=== PATIENT | female | born 1970 | race Caucasian/White ===

== ENCOUNTER 2017-12-12 03:42 | Emergency (ER) | payer OTHER, SELFPAY ==
[2017-12-12 03:44] VITALS: BP 103/69; PULSE 63; RESP 16; TEMP 36.7; O2SAT 98; BMI 26.8
--- NOTE | 2017-12-12 04:01 | EKG12_ITS ---
Test Reason : DIZZINESS Blood Pressure : / mmHG Vent. Rate : 058 BPM Atrial Rate : 058 BPM P-R Int : 184 ms QRS Dur : 080 ms QT Int : 410 ms P-R-T Axes : 067 085 050 degrees QTc Int : 402 ms Sinus bradycardia Otherwise normal ECG Confirmed by PUMA PRETTY, CORBIN ([id number]), communications editor CHARLES PAINTER ([id number]) on 12/17/2017 1:54:34 PM Referred By: KIMANI Confirmed By:CORBIN BARTHOLOMEW MD
--- NOTE | 2017-12-12 04:02 | VDLE_ITS ---
Reason For Study: LEG PAIN RIGHT LEFT GSV is normal. CFV is compressible, spontaneous, phasic, CFV is compressible, spontaneous, phasic, competent, and demonstrates normal competent and demonstrates normal augmentation. augmentation. FV is compressible, spontaneous, phasic, competent and demonstrates normal augmentation. POP V is compressible, spontaneous, phasic, competent and demonstrates normal augmentation. T/P Trunk is compressible. PTV is compressible. RT PerV is compressible. Procedure Exam performed portable in ED. A preliminary report was called and/or faxed to Dr. Cardenas. Interpretation Summary Deep veins of the right lower extremity are patent and compressible segmentally. There is no evidence of right lower extremity deep vein thrombosis. Valvular competence appears intact within the proximal deep venous system on the right . The right greater saphenous vein appears patent and compressible segmentally. Ordering Physician: Erica Harper Referring Physician: Amish Gloden MD Performed By: Maria Del Carmen Lara RVT
--- NOTE | 2017-12-12 04:16 | ED.VISSUMM ---
- ER Visit Summary Date of Service: 12/12/17 Chief Complaint: Right leg cramping History of Present Illness: The patient is a 46 F presenting with right leg cramping. Patient states she woke up and started to walk to the bathroom. She had cramping in her right leg. She began to feel anxious because she has known multiple people who have from blood clots. She started to feel dizzy like she was going to pass out. She did not pass out. She denies vertigo. She had nausea and diarrhea, no vomiting. She denies chest pain or shortness of breath. She states she has similar symptoms when she has her blood drawn. She did have a recent plane trip to [place]. No other PE/DVT risk factors. Physical Examination: Vitals are stable. Patient is afebrile. Alert no acute distress. HEENT exam is unremarkable. Neck is supple. Lungs are clear and equal bilaterally. Heart is regular rate and rhythm. Abdomen is soft nontender nondistended. Extremities no calf tenderness; no erythema, warmth or swelling. Normal distal pulses Skin is warm and dry. No focal neurologic deficit. Remainder of exam is unremarkable. Emergency Department Course and Treatment: EKG is sinus rate of 58 with no acute ischemic changes. CBC, chemistries are unremarkable. On repeat evaluation she is resting comfortably. Venous Doppler of the right lower extremity is pending at this time and will be checked out to the oncoming physician. Disposition: Pending Impression: RLE cramping, dizziness-resolved This note was generated with [email or web address] dictation software. It may contain incorrect words, spelling, and punctuation that were not noted in review of the chart prior to signing ED Disposition - Plan for ED Patient: Chief Complaint: Lower Extremity Injury Instructions: ED Dizziness [facility] Referrals: Amish Golden MD [Primary Care Provider] -
--- NOTE | 2017-12-12 04:20 | ED.DCSUM_ITS ---
- ER Visit Summary Date of Service: 12/12/17 Chief Complaint: Right leg cramping History of Present Illness: The patient is a 46 F presenting with right leg cramping. Patient states she woke up and started to walk to the bathroom. She had cramping in her right leg. She began to feel anxious because she has known multiple people who have from blood clots. She started to feel dizzy like she was going to pass out. She did not pass out. She denies vertigo. She had nausea and diarrhea, no vomiting. She denies chest pain or shortness of breath. She states she has similar symptoms when she has her blood drawn. She did have a recent plane trip to [place]. No other PE/ DVT risk factors. Physical Examination: Vitals are stable. Patient is afebrile. Alert no acute distress. HEENT exam is unremarkable. Neck is supple. Lungs are clear and equal bilaterally. Heart is regular rate and rhythm. Abdomen is soft nontender nondistended. Extremities no calf tenderness; no erythema, warmth or swelling. Normal distal pulses Skin is warm and dry. No focal neurologic deficit. Remainder of exam is unremarkable. Emergency Department Course and Treatment: EKG is sinus rate of 58 with no acute ischemic changes. CBC, chemistries are unremarkable. On repeat evaluation she is resting comfortably. Venous Doppler of the right lower extremity is pending at this time and will be checked out to the oncoming physician. Disposition: Pending Impression: RLE cramping, dizziness-resolved This note was generated with [employer] dictation software. It may contain incorrect words, spelling, and punctuation that were not noted in review of the chart prior to signing ED Disposition - Plan for ED Patient: Chief Complaint: Lower Extremity Injury Instructions: ED Dizziness [facility] Referrals: Amish Golden MD [Primary Care Provider] -
[2017-12-12 04:57] LABS: Absolute Lymphocyte Count 2.46 X10^3/ul (0.83-4.51); Absolute Neutrophil Count 2.9 X10^3/uL (2.0-7.7); Basophil# 0.05 X10^3/uL; Basophil% 0.7 % (0-1); Hemoglobin 13.5 g/dl (12.0-15.0); Lymphocyte # 2.46 X10^3/ul (4.0); Lymphocyte % 36.9 % (19-41); Mean Corp Hgb Conc 32.1 g/gl (32-36); Mean Corpuscular Hgb 27.8 pg (27.0-32.0); Mean Corpuscular Volume 86.4 fL (81-99); Mean Platelet Vol. 9.9 fl (6.2-12.0); Monocyte% 13.5 % (0-10); Neutrophil # 2.85 X10^3/uL (2.7-7.7); Neutrophil % 42.8 % (47-70); Platelet Count 268 K/mm3 (150-450); RBC Distribution Width CV 13.3 % (11.6-14.6); RBC Distribution Width SD 41.6 fl (35.1-43.9); Red Blood Count 4.86 M/mm3 (4.2-5.4); White Blood Count 6.7 K/mm3 (4.4-11.0)
[2017-12-12 04:58] LABS: POSITIVE COUNT NO; POSITIVE DIFFERENTIAL NO; POSITIVE MORPHOLOGY NO
[2017-12-12] MEDS: 0.9% Normal Saline 1,000 ML 1000 ML IV (05:11)
[2017-12-12 05:15] LABS: Anion Gap 7 (5-15); BUN 18 mg/dL (7-18); BUN/Creat Ratio 19.8 RATIO (10-20); Calcium,Total 8.9 mg/dL (8.5-10.1); Chloride 105 mmol/L (98-107); Creatinine, Serum 0.91 mg/dL (0.55-1.02); EST Glomerular Filtration Rate 70 mL/min (>60); Est Glom Filt Rate - Afr Amer 85 mL/min (>60); Estimated Creatinine Clearance 68.77 ml/min; Glucose 98 mg/dL (74-106); Potassium 3.9 mmol/L (3.5-5.1); Sodium Level 142 mmol/L (136-145)
--- NOTE | 2017-12-12 05:24 | ED.DEP ---
ED Disposition - Plan for ED Patient: Chief Complaint: Lower Extremity Injury Instructions: ED Dizziness [facility] Referrals: Amish Golden MD [Primary Care Provider] -
[2017-12-12 08:31] VITALS: BP 113/65; PULSE 76; RESP 14; O2SAT 97
== END 2017-12-12 08:32 | disposition home or self-care (01) ==
LOC: ED 04:04
PROVIDERS: Emergency Provider Emergency Medicine; Family Provider Family Medicine; PCP Family Medicine
DX: R25.2 Cramp and spasm (principal); R42 Dizziness and giddiness; R19.7 Diarrhea, unspecified
CPT/HCPCS: 80048; 85025; 93005; 93971; 96360; 96361; 99284; J7030; A4216

== ENCOUNTER → 2018-05-13 08:00 | Outpatient (CLI) | payer OTHER, SELFPAY ==
--- NOTE | 2018-05-13 08:02 | US_ITS ---
STUDY: ULTRASOUND OF THE FEMALE PELVIS - COMPLETE REASON FOR EXAM: Female, 47 years old. Suprapubic pain. LMP: 04/20/2018 TECHNIQUE: Transabdominal and Transvaginal TECHNICAL QUALITY: Adequate. COMPARISON: None. FINDINGS: The uterus is anteverted and is in a midline position. The uterus measures 12.6 x 5.9 x 4.2 cm. Uterus is relatively heterogeneous which can be seen with diffuse leiomyomatous change. There are focal fibroids. There is a 2.3 cm anterior uterine fibroid. There is an 8 mm calcified fibroid of the fundus. There is a 1.8 cm posterior uterine fibroid. There is a Nabothian cyst of the cervix. The endometrium measures 10 mm in thickness, and is hypoechoic. There is significant endometrial fluid. There is a 1.1 cm soft tissue structure or mass in the endometrial cavity. The right ovary is visualized. The right ovary measures 2.9 x 2.3 x 1.3 cm. There is no right ovarian cyst or ovarian mass. There is no visualized right adnexal mass or complex lesion. There is normal arterial and normal venous vascularity. The left ovary is visualized. The left ovary measures 3.2 x 2.0 x 1.4 cm. There is no left ovarian cyst or ovarian mass. There is no visualized left adnexal mass or complex lesion. There is normal arterial and normal venous vascularity. There is no fluid in the cul-de-sac. The pre void volume of the bladder was 210 ml. US/Pelvic (Non ) IMPRESSION: Enlarged uterus with several focal fibroids and possible diffuse leiomyomatous change. Fluid filled endometrial cavity with a 1.1 cm soft tissue structure, possibly a polyp. Correlate with status. Consider direct visualization. Electronically Signed: Jaime Lagos MD at 19:20 EDT , Service support ,
--- NOTE | 2018-05-13 08:20 | US_ITS ---
STUDY: ULTRASOUND OF THE FEMALE PELVIS - COMPLETE REASON FOR EXAM: Female, 47 years old. Suprapubic pain. LMP: 04/20/2018 TECHNIQUE: Transabdominal and Transvaginal TECHNICAL QUALITY: Adequate. COMPARISON: None. FINDINGS: The uterus is anteverted and is in a midline position. The uterus measures 12.6 x 5.9 x 4.2 cm. Uterus is relatively heterogeneous which can be seen with diffuse leiomyomatous change. There are focal fibroids. There is a 2.3 cm anterior uterine fibroid. There is an 8 mm calcified fibroid of the fundus. There is a 1.8 cm posterior uterine fibroid. There is a Nabothian cyst of the cervix. The endometrium measures 10 mm in thickness, and is hypoechoic. There is significant endometrial fluid. There is a 1.1 cm soft tissue structure or mass in the endometrial cavity. The right ovary is visualized. The right ovary measures 2.9 x 2.3 x 1.3 cm. There is no right ovarian cyst or ovarian mass. There is no visualized right adnexal mass or complex lesion. There is normal arterial and normal venous vascularity. The left ovary is visualized. The left ovary measures 3.2 x 2.0 x 1.4 cm. There is no left ovarian cyst or ovarian mass. There is no visualized left adnexal mass or complex lesion. There is normal arterial and normal venous vascularity. There is no fluid in the cul-de-sac. The pre void volume of the bladder was 210 ml. US/Transvaginal Non- IMPRESSION: Enlarged uterus with several focal fibroids and possible diffuse leiomyomatous change. Fluid filled endometrial cavity with a 1.1 cm soft tissue structure, possibly a polyp. Correlate with status. Consider direct visualization. Electronically Signed: Jaime Lagos MD at 19:20 EDT , Service support ,
== END ==
PROVIDERS: Family Provider Family Medicine; PCP Family Medicine; Referring Provider Family Medicine; Visit Provider Family Medicine
DX: R10.2 Pelvic and perineal pain (principal)
CPT/HCPCS: 76830; 76856; 93976

== ENCOUNTER → 2018-07-13 10:40 | Outpatient (CLI) | payer OTHER, SELFPAY ==
--- NOTE | 2018-07-13 10:42 | BI_ITS ---
MAMMOGRAPHY - BILATERAL SCREENING 3-D RICK SYNTHESIS REASON FOR EXAM: Female, 47 years old. Bilateral Screening 3-D tomosynthesis PERTINENT HISTORY: No significant family history. TECHNIQUE: 2-D mammograms and 3-D Rick synthesis of the breast (s) were performed. CAD was performed. COMPARISON: June 07, 2017 FINDINGS: The breast composition is of mild heterogeneous fibroglandular tissue. Scattered benign calcifications are seen. No dense spiculated masses or suspicious microcalcifications are identified. No architectural distortion is identified. There is no skin thickening or retraction. Benign appearing lymph nodes in the axillary areas bilaterally. There has been no significant change since the prior study. BI/SCREENING MAMM (CAD), BILAT IMPRESSION: No mammographic signs of malignancy. Routine yearly mammograms recommended. ASSESSMENT CATEGORY: BIRADS Category 1: Negative. A letter regarding these results will be sent to the patient by the facility within 30 days. FOLLOW UP RECOMMENDATION: Yearly follow up mammogram recommended. (A) Approximately 10% of breast cancers are not detected by mammography. A normal mammogram should not delay biopsy of a clinically suspicious abnormality. Electronically Signed: Erlinda Forrester, at 10:42 EST Tel , Service support ,
== END ==
PROVIDERS: Family Provider Family Medicine; PCP Family Medicine; Visit Provider Family Medicine
DX: Z12.31 Encounter for screening mammogram for malignant neoplasm of breast (principal)
CPT/HCPCS: 77063; 77067

== ENCOUNTER → 2019-03-12 12:12 | Outpatient (CLI) | payer OTHER, SELFPAY ==
--- NOTE | 2019-03-12 12:23 | RAD_ITS ---
STUDY: X-RAY - LEFT SHOULDER REASON FOR EXAM: Female, 48 years old. Shoulder pain TECHNIQUE: 4 view(s) of the shoulder. COMPARISON: None. FINDINGS: Normal glenohumeral articulation. Normal acromioclavicular joint. Normal acromion. Normal humeral head and visualized proximal humerus. The soft tissue structures are unremarkable. Normal visualized pulmonary apex. RAD/Shoulder min 2 Views IMPRESSION: Normal x-ray examination of the shoulder. Electronically Signed: Osorio Meneses DO at 14:34 EDT Tel , Service support ,
== END ==
PROVIDERS: Family Provider Family Medicine; PCP Family Medicine; Referring Provider Family Medicine; Visit Provider Family Medicine
DX: M25.512 Pain in left shoulder (principal)
CPT/HCPCS: 73030

== ENCOUNTER → 2019-06-18 07:23 | Outpatient (CLI) | payer OTHER, SELFPAY ==
[2019-06-18 10:37] LABS: AST(SGOT) 16 U/L (15-37); Alanine Aminotransfer ALT/SGPT 26 U/L (13-56); Albumin, Serum 3.9 g/dL (3.2-5.0); Alkaline Phosphatase 86 U/L (45-117); Anion Gap 6 (5-15); BUN 10 mg/dL (7-18); BUN/Creat Ratio 10.5 RATIO (10-20); Calcium,Total 9.1 mg/dL (8.5-10.1); Chloride 104 mmol/L (98-107); Cholesterol 203 mg/dL (200); Creatinine, Serum 0.95 mg/dL (0.55-1.02); EST Glomerular Filtration Rate 66 mL/min (>60); Est Glom Filt Rate - Afr Amer 80 mL/min (>60); Glucose 87 mg/dL (74-106); High Density Lipoprotein 57 mg/dL; Potassium 3.7 mmol/L (3.5-5.1); Protein, Total 7.9 g/dL (6.4-8.2); Sodium Level 138 mmol/L (136-145); Triglycerides 292 mg/dL; Very Low Density Lipoprotein 58 mg/dL (5-40)
== END ==
PROVIDERS: Family Provider Family Medicine; PCP Family Medicine; Referring Provider Nurse Practitioner Family; Visit Provider Nurse Practitioner Family
DX: Z00.00 Encounter for general adult medical examination without abnormal findings (principal)
CPT/HCPCS: 36415; 80053; 80061

== ENCOUNTER → 2019-07-13 08:15 | Outpatient (CLI) | payer OTHER, SELFPAY ==
[2019-07-13 09:51] LABS: Absolute Lymphocyte Count 2.86 X10^3/uL (0.83-4.51); Absolute Neutrophil Count 2.9 X10^3/uL (2.0-7.7); Basophil# 0.06 X10^3/uL; Basophil% 0.9 % (0-1); Eosinophil# 0.45 X10^3/uL; Eosinophils% 6.4 % (0-5); Hematocrit 41.5 % (37-47); Hemoglobin 13.5 g/dL (12.0-15.0); Lymphocyte # 2.86 X10^3/ul (4.0); Lymphocyte % 40.7 % (19-41); Mean Corp Hgb Conc 32.5 g/dL (32-36); Mean Corpuscular Hgb 29.2 pg (27.0-32.0); Mean Corpuscular Volume 89.6 fL (81-99); Mean Platelet Vol. 10.2 fl (6.2-12.0); Monocyte# 0.71 X10^3/uL; Monocyte% 10.1 % (0-10); NRBC Flagged by Analyzer 0 % (0-5); Neutrophil # 2.92 X10^3/uL (2.7-7.7); Neutrophil % 41.6 % (47-70); Platelet Count 280 K/mm3 (150-450); RBC Distribution Width CV 11.8 % (11.6-14.6); RBC Distribution Width SD 38.3 fl (35.1-43.9); Red Blood Count 4.63 M/mm3 (4.2-5.4)
[2019-07-13 10:34] LABS: Ferritin 31 ng/mL (8-252); Thyroid Stim Hormone (TSH) 2.94 uIU/mL (0.358-3.74)
== END ==
PROVIDERS: Family Provider Family Medicine; PCP Family Medicine; Referring Provider Family Medicine; Visit Provider Family Medicine
DX: D50.8 Other iron deficiency anemias (principal); F32.5 Major depressive disorder, single episode, in full remission
CPT/HCPCS: 36415; 82728; 84443; 85025

== ENCOUNTER 2019-09-09 08:00 | Outpatient (RCR) | payer OTHER, SELFPAY ==
--- NOTE | 2019-03-31 18:30 | HP.PTEVAL ---
Patient's Visit Information FERNIE ASH is a 48 year old F referred to Physical Therapy by Foster Harrell MD with a diagnosis of R shoulder pain. Date of Evaluation: 03/25/19 Physical Therapist: Rolando Murillo DPT - Visit Plan Frequency: 2x /Week Duration: 4-6 Weeks Plan: Start with biceps tendon tension, RTC stability/postural strength - Subjective Findings: Pt. is here today for her initial evaluation with diagnosis of L shoulder pain. Pt. reports having pain for a few months now. Pt. denies N/T, no mech of injury. Pt. believes it was lifting boxes earlier this summer. Pt. works at the [employer] in the [employer] department. She reports pain that starts in shoulder, but occassionally in her elbow and hand. Pt. reports increased difficulty with sleeping, but is able to do most of her work activities without limitations. Pt. identifies most of her pain at her anterior shoulder. Pt. reports on and off pain, but at times her pain is pretty bad. Pt. denies neck pain and had previously done PT for her neck, resolved with retraction exercises. Pt. has some L Ut symptoms as well. Pt. is hopeful to reduce symptoms in order to get back to all recreational and work activities without limitations. - Pain L shoulder Pain Intensity (Out of 10): 2 Pain Intensity Range: 0, 6 - Objective POSTURE: Pt. has rounded posture, FH posture. Pt. has rounded shouldes as well. PALPATION: Pt. has increased tenderness at levator scapulea, UT, bicipital groove. Pt. has no pain with supraspinatus msucle belly palpation. NEURO: Normal throughout. ROM: Pt. has sligth reduction in lifting her arm over head, Pt. is also having incraesed pain with reaching behind her back. Pt. has decreased cervical ROM. MMT: Pt. has some RTC weakness, some pain with biceps pain with testing. - Goals Goal 1:: Pt. to be I with HEP. Goal Time Frame: 4-6 Weeks Goal 2:: Pt. to have no pain in shoulder with all activit/functional mobility Goal Time Frame: 4-6 Weeks Goal 3:: Pt. to have increased R shoulder RTC and biceps strength by 1/2 grade. Goal Time Frame: 4-6 Weeks Goal 4:: Pt. to sleep without increase in symptoms. Goal Time Frame: 4-6 Weeks Goal 5:: Pt. to have full shoulder mobility without increase in symptoms. Goal Time Frame: 4-6 Weeks - Rehabilitation Potential Physical Therapy Diagnosis: Pt. has signs suggesting biceps tendonitis/pain. Pt. has some UT and levator scapulea pain. Pt. would benefit from PT to work on strengthening and stability exercises. Rehabilitation Potential: Good - Anticipated Interventions Patient/Client Instruction: Educate patient on: Condition, Plan of Care, Risk Factors, Benefits of Fitness Program For the Purpose of:: To improve decision making, To facilitate caregiver knowledge, To improve self management, To prevent re-injury, To improve ability to perform tasks related to life management Therapeutic Exercise to Include: Strength training, Power training, Postural training, Flexibilty training, Passive ROM, Active ROM, Mervat Exercises, Scapular Strength/Stabilization For the Purpose of:: To decrease pain, To decrease swelling/inflammation, To increase ROM, To improve nutrient delivery to tissue, To increase oxygenation perfusion, To improve muscle performance and motor function, To improve ability to perform ADL's, To improve health of tissue, To decrease soft tissue restriction, To increase flexibility/ROM Manual Therapy Techniques to Include: Mobilization, Functional dry needling, Soft tissue mobilization For the Purpose of:: To decrease pain, To decrease swelling/inflammation, To increase ROM Ultrasound (thermal/non thermal): Yes For the Purpose of:: To decrease pain, To decrease swelling/inflammation, To increase ROM Thank you for the opportunity to evaluate your patient. For Medicare and Medicare HMO plans, please review the plan of care and approve it. It will need to be FAXED BACK to us at [phone] for Medicare purposes. For Medicare only, by signing this I certify the plan of care. Please let me know if there are questions or concerns regarding this plan of care. Physician Signature: Date:
--- NOTE | 2019-04-15 08:33 | HP.PTREVAL ---
Foster Harrell MD, It has been my pleasure to treat FERNIE ASH over the last 7 visits for R shoulder pain. Please see the progress note below for an update on the physical therapy plan of care! Subjective: Pt. reports I am about the same overall. Pt. reports being consistent with HEP, with focus on stretching. Objective/Function: AROM: L shoulder- flexion 150deg, abd 145deg, functional ER external auditory meatus, IR abherrant to L PSIS. PROM: flexion 160deg leathery end feel, abd 155 leather end feel, ER at 90deg 20deg leather end feel, IR at 90deg 15deg leathery end feel. MMT: Pt. has 4+/5 strength throughout. Pt. appears to have more of an adhesive capsulities. She is tolerativing stretching and I would continue with this and with manual strethcing with inferior glides. Plan Plan: Pt. is following up with [facility]. Pt. is to continue with PROM/stretching at home, focusing on end ranges of motions to tolerance. SHe will be continue with PT with focus on stretching and inferior glides which she can not complete on her own. Goals Goal 1:: Pt. to be I with HEP. Goal Time Frame: 4-6 Weeks Goal Progress: Goal Met Goal 2:: Pt. to have no pain in shoulder with all activit/functional mobility Goal Time Frame: 4-6 Weeks Goal Progress: Progressing Goal 3:: Pt. to have increased R shoulder RTC and biceps strength by 1/2 grade. Goal Time Frame: 4-6 Weeks Goal 4:: Pt. to sleep without increase in symptoms. Goal Time Frame: 4-6 Weeks Goal Progress: Goal Met Goal 5:: Pt. to have full shoulder mobility without increase in symptoms. Goal Time Frame: 4-6 Weeks Goal Progress: Progressing Anticipated Interventions Patient/Client Instruction: Educate patient on: Condition, Plan of Care, Risk Factors, Benefits of Fitness Program For the Purpose of:: To improve decision making, To facilitate caregiver knowledge, To improve self management, To prevent re-injury, To improve ability to perform tasks related to life management Therapeutic Exercise to Include: Strength training, Power training, Postural training, Flexibilty training, Passive ROM, Active ROM, Mervat Exercises, Scapular Strength/Stabilization For the Purpose of:: To decrease pain, To decrease swelling/inflammation, To increase ROM, To improve nutrient delivery to tissue, To increase oxygenation perfusion, To improve muscle performance and motor function, To improve ability to perform ADL's, To improve health of tissue, To decrease soft tissue restriction, To increase flexibility/ROM Manual Therapy Techniques to Include: Mobilization, Functional dry needling, Soft tissue mobilization For the Purpose of:: To decrease pain, To decrease swelling/inflammation, To increase ROM Ultrasound (thermal/non thermal): Yes For the Purpose of:: To decrease pain, To decrease swelling/inflammation, To increase ROM Please do not hesitate to contact me at [phone] by phone or if you have questions or concerns regarding this new plan of care! Sincerely, RIDDHI MontillaT
--- NOTE | 2019-05-31 09:36 | HP.PTREVAL ---
Foster Harrell MD, It has been my pleasure to treat FERNIE ASH over the last 13 visits for L shoulder pain. Please see the progress note below for an update on the physical therapy plan of care! Subjective: Pt. reports I have been able to sleep without as much pain.' Pt. did see ortho and was diagnosed with adhesive capsulitis. Pt. was given option to continue with PT with stretching or [facility]. Pt. chose PT. Pt. reports being 65% better overal. Objective/Function: Pt. has close to full L shoulder flexion, 175deg of shoulder abd, functional ER C3 but abherrant motion, Passive shoudler ER at 90deg 60deg, Passive shoulder IR at 90deg of abd, 30deg., functional IR L5. Pt. has increased pain at end ranges of motions, but worst with ER/IR motions. She has improved sleeping pattern, but still has some difficulty with lying on her L side. Daily activityies have improved. Plan Plan: Added x1 per week for 4-6 weeks with focus end range stretching, joint mobilization and HEP progression. Goals Goal 1:: Pt. to be I with HEP. Goal Time Frame: 4-6 Weeks Goal Progress: Goal Met Goal 2:: Pt. to have no pain in shoulder with all activit/functional mobility Goal Time Frame: 4-6 Weeks Goal Progress: Progressing Goal 3:: Pt. to have increased R shoulder RTC and biceps strength by 1/2 grade. Goal Time Frame: 4-6 Weeks Goal Progress: Progressing Goal 4:: Pt. to sleep without increase in symptoms. Goal Time Frame: 4-6 Weeks Goal Progress: Goal Met Goal 5:: Pt. to have full shoulder mobility without increase in symptoms. Goal Time Frame: 4-6 Weeks Goal Progress: Progressing Anticipated Interventions Patient/Client Instruction: Educate patient on: Condition, Plan of Care, Risk Factors, Benefits of Fitness Program For the Purpose of:: To improve decision making, To facilitate caregiver knowledge, To improve self management, To prevent re-injury, To improve ability to perform tasks related to life management Therapeutic Exercise to Include: Strength training, Power training, Postural training, Flexibilty training, Passive ROM, Active ROM, Mervat Exercises, Scapular Strength/Stabilization For the Purpose of:: To decrease pain, To decrease swelling/inflammation, To increase ROM, To improve nutrient delivery to tissue, To increase oxygenation perfusion, To improve muscle performance and motor function, To improve ability to perform ADL's, To improve health of tissue, To decrease soft tissue restriction, To increase flexibility/ROM Manual Therapy Techniques to Include: Mobilization, Functional dry needling, Soft tissue mobilization For the Purpose of:: To decrease pain, To decrease swelling/inflammation, To increase ROM Ultrasound (thermal/non thermal): Yes For the Purpose of:: To decrease pain, To decrease swelling/inflammation, To increase ROM Please do not hesitate to contact me at [phone] by phone or if you have questions or concerns regarding this new plan of care! Sincerely, RIDDHI MontillaT
--- NOTE | 2019-09-13 08:33 | HP.PTDCSUM ---
HP - PT D/C Summary It has been my pleasure to treat FERNIE ASH under orders from Foster Harrell MD, for the diagnosis of L shoulder pain for a total of 23 visit(s). Discharge Date: 09/09/19 Please see the following information for a summary of their discharge status. - Subjective Subjective: Pt. reports she is 95% better. Pt. is abck to most activities, but does have slight limiation with L shoulder H abd. Pt. reports being HEP compliant without issues. - Pain L shoulder Pain Intensity (Out of 10): 0 left shldr Pain Intensity (Out of 10): 0 - Overall Improvement % Improvement: 95 - Objective Objective/Function: Pt. tolerated all PT without adverse reacton. PT. as full ROM of L shoulder except H abd, 15% limited. Pt. has full functional motions without increase in symptoms. Pt. had minimal consentatory patters with all L sholder motions. Pt. has 5/5 strength without issues. Pt. to complete HEP with focus on stretching, pt. consents. - Goals Goal 1:: Pt. to be I with HEP. Goal Progress: Goal Met Goal 2:: Pt. to have no pain in shoulder with all activit/functional mobility Goal Progress: Goal Met Goal 3:: Pt. to have increased R shoulder RTC and biceps strength by 1/2 grade. Goal Progress: Goal Met Goal 4:: Pt. to sleep without increase in symptoms. Goal Progress: Goal Met Goal 5:: Pt. to have full shoulder mobility without increase in symptoms. Goal Progress: Goal Met - Plan Plan: DC to HEP at this point in time. - D/C Information Discharge Comments: Pt. was treated for her adhesive capsulities with prolonged stretching and joint mobs. Pt. was educated in proper stretching techniques. Pt. is now doing well with 95% improvement. Pt. will be DC to HEP at this point in time. If there are questions or concerns regarding this patient's physical therapy, please feel free to call me at [phone]. Thank you for the referral of this patient. Sincerely, Rolando Murillo DPT
== END 2019-09-09 19:00 | disposition home or self-care (01) ==
LOC: PT 08:00
PROVIDERS: Family Provider Family Medicine; PCP Family Medicine; Referring Provider Family Medicine; Visit Provider Family Medicine
DX: M25.512 Pain in left shoulder (principal)
CPT/HCPCS: 97110; 97161; 97164; 97530

== ENCOUNTER 2020-10-03 15:46 | Outpatient (RCR) | payer OTHER, SELFPAY ==
[2020-03-31 13:43] VITALS: BMI 26.8
[2020-10-03] MEDS: COVID-19 VACC, MRNA(PFIZER)/PF 30 MCG/0.3 ML SYRINGE IM (07:39)
[2020-10-24] MEDS: COVID-19 VACC, MRNA(PFIZER)/PF 30 MCG/0.3 ML SYRINGE IM (07:19)
== END 2020-12-26 23:59 ==
LOC: IMMUN 15:46
PROVIDERS: PCP Family Medicine; Referring Provider Family Medicine; Visit Provider Family Medicine
DX: Z23 Encounter for immunization (principal)
CPT/HCPCS: 0001A; 0002A; 91300

== ENCOUNTER → 2020-11-03 14:03 | Outpatient (CLI) | payer OTHER, SELFPAY ==
[2020-03-31 13:43] VITALS: BMI 26.8
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
== END ==
PROVIDERS: PCP Family Medicine; Referring Provider Family Medicine; Visit Provider Family Medicine
DX: S52.125A Nondisplaced fracture of head of left radius, initial encounter for closed fracture (principal); V89.2XXA Person injured in unspecified motor-vehicle accident, traffic, initial encounter; Y93.9 Activity, unspecified; Y92.9 Unspecified place or not applicable; Y99.9 Unspecified external cause status
CPT/HCPCS: 73080; 73100

== ENCOUNTER → 2020-11-21 09:23 | Outpatient (CLI) | payer OTHER, SELFPAY ==
[2020-03-31 13:43] VITALS: BMI 26.8
--- NOTE | 2020-11-21 09:30 | RAD_ITS ---
STUDY: X-RAY - LEFT ELBOW REASON FOR EXAM: Female, 49 years old. follow up fx TECHNIQUE: 3 view(s) of the elbow. COMPARISON: 11/03/2020 FINDINGS: Healing nondisplaced fracture the radial neck with sclerosis and bony bridging. Normal radiocapitellar and ulnotrochlear articulations. The soft tissue structures are unremarkable. RAD/Elbow min 3 Views IMPRESSION: Healing radial neck fracture. Electronically Signed: Timur Pineda MD at 8:29 EDT Tel , Service support ,
== END ==
PROVIDERS: PCP Family Medicine; Referring Provider Family Medicine; Visit Provider Family Medicine
DX: S52.102A Unspecified fracture of upper end of left radius, initial encounter for closed fracture (principal); X58.XXXA Exposure to other specified factors, initial encounter; Y93.9 Activity, unspecified; Y92.9 Unspecified place or not applicable; Y99.9 Unspecified external cause status
CPT/HCPCS: 73080

== ENCOUNTER 2020-12-08 07:00 | Outpatient (RCR) | payer OTHER, SELFPAY ==
[2020-03-31 13:43] VITALS: BMI 26.8
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
--- NOTE | 2020-12-01 10:54 | HP.OTDCSUM ---
It has been my pleasure to treat FERNIE ASH under orders from Dr. Amish Golden MD, for the diagnosis of left radial head fx. for a total of 7 visit(s). Please see the following information for a summary of their discharge status. % Improvement: 75 Objective/Function: pt given HEP pt demo understanding Patient Goals: Regain Mobility, Decrease Pain, Use Hand/Wrist/Arm Normally Again Goal:: pt will demo increase in left shoulder MMT 4+/5 to increase pts ind. with ADls and IADLs. pt will demo a increase in left gloria/tricpes mmt 4+/5 to increase ind with ADLs and IADls. pt will demo a increase in left propeller inspector strength by 15#or greater to increase pts ind. with ADLs and IADLs by d/c Goal:: pt will demo a increase in left elbow ROM 0/140 by d/c with no pain at end range to return to ADLs and IADLs at IND. level by d/c Goal:: pt will report no pain greater than 1/10 with use of left UE with ADLs and IADls by d/c Plan: d/c Discharge Comments: pt was seen for 7 OT visit and has gained full elbow ROM and has returned to her PLOF with ADLs and IADLs- pt has met OT goal and is d/c with HEP If there are questions or concerns regarding this patient's occupational therapy, please fell free to call me at [phone]. Thank you for the referral of this patient. Sincerely, Jennifer Vincent, OTR/L, CHT
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
== END 2020-12-08 10:00 | disposition home or self-care (01) ==
LOC: PT 07:00
PROVIDERS: PCP Family Medicine; Referring Provider Family Medicine; Visit Provider Family Medicine
DX: M25.512 Pain in left shoulder (principal); M25.532 Pain in left wrist; M25.552 Pain in left hip
CPT/HCPCS: 97014; 97035; 97110; 97112; 97162; 97164; 97166; 97530; G0283

== ENCOUNTER 2021-09-06 07:12 | Outpatient (CLI) | payer BC, SELFPAY ==
--- NOTE | 2021-09-06 07:15 | BI_ITS ---
MAMMOGRAPHY - BILATERAL SCREENING REASON FOR EXAM: Female, 50 years old. Routine annual screening examination. PERTINENT HISTORY: Sister with breast cancer. TECHNIQUE: Digital bilateral breast rick (3D mammographic acquisition) in the CC and MLO projections. 2-D mediolateral oblique (MLO) and craniocaudad (CC) views of both breasts were obtained. CAD: Full Field Digital Mammography with Computer Added Detection was performed. COMPARISON: Comparison is made with prior outside examination dated 07/26/2020. FINDINGS: Breast Composition: The breasts are heterogeneously dense, which may obscure small masses. There are no dominant masses or suspicious calcifications. Stable small bilateral benign-appearing axillary lymph nodes. No other significant abnormalities are identified. There has been no significant change since the prior study. BI/SCRN MAMM (CAD)W/RICK BILAT IMPRESSION: Stable bilateral screening mammogram. Yearly follow-up mammogram recommended. (A) ASSESSMENT CATEGORY: BIRADS Category 2: Benign. A letter regarding these results will be sent to the patient by the facility within 30 days. Approximately 10% of breast cancers are not detected by mammography. A normal mammogram should not delay biopsy of a clinically suspicious abnormality. [id number] Electronically Signed: Curt Cisse MD at 14:23 EST ,
== END 2021-09-06 23:59 | disposition home or self-care (01) ==
LOC: OPBI 07:12
PROVIDERS: PCP Family Medicine; Referring Provider Advanced Practice Midwife; Visit Provider Advanced Practice Midwife
DX: Z12.31 Encounter for screening mammogram for malignant neoplasm of breast (principal); Z80.3 Family history of malignant neoplasm of breast
CPT/HCPCS: 77063; 77067

== ENCOUNTER → 2022-10-16 | Outpatient (CLI) | payer OTHER, SELFPAY ==
--- NOTE | 2022-10-16 07:01 | BI_ITS ---
MAMMOGRAPHY - BILATERAL SCREENING REASON FOR EXAM: Female, 51 years old. Routine annual screening examination. PERTINENT HISTORY: Sister with breast cancer. TECHNIQUE: Digital bilateral breast rick (3D mammographic acquisition) in the CC and MLO projections. 2-D mediolateral oblique (MLO) and craniocaudad (CC) views of both breasts were obtained. CAD: Full Field Digital Mammography with Computer Added Detection was performed. COMPARISON: Comparison is made with prior study dated September 06, 2021 and July 13, 2018. FINDINGS: Breast Composition: The breasts are heterogeneously dense, which may obscure small masses. There are no dominant masses or suspicious calcifications. Stable small benign-appearing bilateral axillary nodes. No other significant abnormalities are identified. There has been no significant change since the prior study. BI/SCRN MAMM (CAD)W/RICK BILAT IMPRESSION: Stable bilateral screening mammogram. Yearly follow-up mammogram recommended. (A) ASSESSMENT CATEGORY: BIRADS Category 2: Benign. A letter regarding these results will be sent to the patient by the facility within 30 days. Approximately 10% of breast cancers are not detected by mammography. A normal mammogram should not delay biopsy of a clinically suspicious abnormality. [id number] Electronically Signed: Curt Cisse MD at 8:31 EDT ,
== END | disposition home or self-care (01) ==
LOC: OPBI 06:59
PROVIDERS: PCP Family Medicine; Referring Provider Nurse Practitioner Family; Visit Provider Nurse Practitioner Family
DX: Z12.31 Encounter for screening mammogram for malignant neoplasm of breast (principal); Z80.3 Family history of malignant neoplasm of breast
CPT/HCPCS: 77063; 77067

== ENCOUNTER → 2023-12-05 | Outpatient (CLI) | payer BC, SELFPAY ==
--- NOTE | 2023-12-05 07:47 | BI_ITS ---
MAMMOGRAPHY - BILATERAL SCREENING REASON FOR EXAM: Female, 52 years old. Routine annual screening examination. PERTINENT HISTORY: Sister with breast cancer. TECHNIQUE: Digital bilateral breast rick (3D mammographic acquisition) in the CC and MLO projections. 2-D mediolateral oblique (MLO) and craniocaudad (CC) views of both breasts were obtained. CAD: Full Field Digital Mammography with Computer Added Detection was performed. COMPARISON: Comparison is made with prior study October 16, 2022 and September 06, 2021. FINDINGS: Breast Composition: The breasts are heterogeneously dense, which may obscure small masses. There are no dominant masses or suspicious calcifications. Stable small benign-appearing bilateral axillary lymph nodes. No other significant abnormalities are identified. There has been no significant change since the prior study. BI/SCRN MAMM (CAD)W/RICK BILAT IMPRESSION: Stable bilateral screening mammogram. Yearly follow-up mammogram recommended. (A) ASSESSMENT CATEGORY: BIRADS Category 2: Benign. A letter regarding these results will be sent to the patient by the facility within 30 days. Approximately 10% of breast cancers are not detected by mammography. A normal mammogram should not delay biopsy of a clinically suspicious abnormality. [id number] Electronically Signed: Curt Cisse MD at 9:35 EDT ,
== END | disposition home or self-care (01) ==
LOC: OPBI 07:45
PROVIDERS: PCP Nurse Practitioner Family; Referring Provider Nurse Practitioner Family; Visit Provider Nurse Practitioner Family
DX: Z12.31 Encounter for screening mammogram for malignant neoplasm of breast (principal)
CPT/HCPCS: 77063; 77067

== ENCOUNTER 2024-06-14 18:00 | Outpatient (RCR) | payer BC, SELFPAY ==
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
--- NOTE | 2024-06-14 18:56 | HP.PTDCSUM_ITS ---
Discharge Summary D/C summary: It has been my pleasure to treat FERNIE ASH referred by JOCY Keys, with the diagnosis of ACUTE PAIN OF BOTH KNEES for a total of 7 visit(s). Discharge Date: 06/14/24 Please see the following information for a summary of their discharge status. Subjective Subjective: L KNEE PAIN RANING 0-4/10 NOW. R KNEE PAIN HAS RESOLVED. REPORTS 90% IMPROVEMENT IN L KNEE SINCE STARTING PT. SHE REPORTS SHE HAS BEEN ABLE TO RESUME YOGA CLASS AND WALKING BUT HAS SOME L MEDIAL KNEE ACHING AFTER. SHE HAS NOT RESUMED JOGGING OR OTHER EX CLASSES. STILL GETTING PAIN IN [place]. STATES WATER THERAPY HAS BEEN GREAT. Overall Improvement % Improvement: 90 Objective Objective/Function: PATIENT WAS SEEN TODAY FOR RE-ASSESSMENT OF PROGRESS TOWARD THE SET PT GOALS AND THE NEED FOR FURTHER PHYSICAL THERAPY VS READINESS FOR DISCHARGE. THIS PATIENT HAS MADE GREAT PROGRESS WITH PT BUT STILL HAS SOME PAIN. SHE IS INDEP WITH A POOL EX PROGRAM, HEP AND IS BACK TO TAKING YOGA. SHE IS APPROPRIATE FOR INDEP EX AND PHYSICIAN FOLLOW UP NEEDED. UPON EXAM TODAY: Gait: Indep gait in and out of PT today with normalized gait without c/o pain. ROM deficit: L KNEE 0-0-125 deg flexion with c/o end-range pain. Motor deficit: L LE 5/5 Dural Signs: NEGATIVE PAT LE'S. Lumbar mvmt loss: flex - NIL ext - MIN R SG - NIL L SG - MIN TO MOD L SG INTERMITTENTLY PRODUCES C/O L KNEE PAIN. Core strength: GOOD Steps: Patient is able to ascend and descend steps reciprocally without HR without c/o pain in clinic today. Palpation: TENDERNESS L MEDIAL KNEE AT INSERTION OF MCL. No change in Special Tests compared to initial eval except L Knee Valgus - MCL - is Negative today despite tenderness with palpation. Goals Goal 1:: DECREASE C/O PAT LE PAIN BY AT LEAST 75% TO EASE ADL'S. Goal Progress: Goal Met Goal 2:: INCREASE L KNEE ROM TO 0-0-130 DEG Goal Progress: Progressing Goal 3:: NORMALIZE GAIT ON LEVEL SURFACE IN ALL PLANES AND UP AND DOWN STEPS TO EASE ADL'S Goal Progress: Progressing Goal 4:: INCREASE LLE STRENGTH TO 5/5 Goal Progress: Goal Met Goal 5:: PATIENT WILL BE ABLE TO RESUME INDEP EX CLASS SAFELY WITHOUT PAIN Goal Progress: Progressing Plan Plan: D/C TO INDEP EX AND PHYSICIAN FOLLOW UP NEEDED. PATIENT AGREEABLE. D/C Information d/c sentence: If there are questions or concerns regarding this patient's physical therapy, phil medina feel free to call me at [phone]. Thank you for the referral of this patient. Sincerely, Mone Choudhury, PT, Cert MDT Balance/Gait/Functional tests Balance/Special Test Scores Lower Extremity Functional Score: 48 Improvement % Improvement: 90
== END 2024-06-14 19:00 | disposition home or self-care (01) ==
LOC: PT 18:00
PROVIDERS: PCP Nurse Practitioner Family; Referring Provider Nurse Practitioner Family; Visit Provider Nurse Practitioner Family
DX: M25.561 Pain in right knee (principal); M25.562 Pain in left knee
CPT/HCPCS: 97113; 97162; 97530

== ENCOUNTER → 2024-12-06 | Outpatient (CLI) | payer BC, SELFPAY ==
--- NOTE | 2024-12-06 07:31 | BI_ITS ---
EXAM: SCRN MAMM (CAD)W/RICK BILAT DATE: 12/06/2024 CLINICAL HISTORY: F, Age 53 y/o , SCREENING BREAST CANCER RISK ASSESSMENT: Has not been calculated TECHNIQUE: Bilateral screening digital breast tomosynthesis with 2D and 3D images. Computer aided detection. COMPARISON: Prior exam(s) dated 12/05/2023 and 10/16/2022. FINDINGS: TISSUE DENSITY: The breast tissue is composed of scattered area of fibroglandular density. Bilateral Breast Mammographic Findings: There are no suspicious masses, suspicious cluster of microcalcifications, architectural distortion or secondary signs of malignancy identified in either breast. Benign-appearing round microcalcifications are seen in both breast. BI/SCRN MAMM (CAD)W/RICK BILAT IMPRESSION: OVERALL FINAL ASSESSMENT: BIRADS 2 BENIGN FINDING RECOMMENDATION: Routine annual follow-up in 1 Year A letter with findings and recommendations will be mailed to the patient. Reading Location: [id number]
== END | disposition home or self-care (01) ==
LOC: OPBI 07:29
PROVIDERS: PCP Nurse Practitioner Family; Referring Provider Nurse Practitioner Family; Visit Provider Nurse Practitioner Family
DX: Z12.31 Encounter for screening mammogram for malignant neoplasm of breast (principal)
CPT/HCPCS: 77063; 77067